=== PATIENT | male | born 1950 | race Caucasian/White ===

== ENCOUNTER 2021-04-27 13:23 | Outpatient (CLI) | payer MEDICARE, MEDICAID | END 2021-04-27 13:24 | disposition home or self-care (01) | LOC: NAV RAD 13:23 | PROVIDERS: ATTEND Internal Medicine | DX: R10.2 Pelvic and perineal pain (principal); M25.551 Pain in right hip; M25.552 Pain in left hip; Z91.81 History of falling | CPT/HCPCS: 72170 ==

== ENCOUNTER 2021-07-18 03:56 | Emergency (ER) | payer MEDICARE, MEDICAID ==
[2021-07-18] MEDS ORDERED: Morphine 4 MG/ML VIAL ONE (04:23)
== END 2021-07-18 04:39 ==
LOC: NAV ERS 03:56
DX: M25.551 Pain in right hip (principal); G89.29 Other chronic pain; E11.51 Type 2 diabetes mellitus with diabetic peripheral angiopathy without gangrene; E11.22 Type 2 diabetes mellitus with diabetic chronic kidney disease; I13.0 Hypertensive heart and chronic kidney disease with heart failure and stage 1 through stage 4 chronic kidney disease, or unspecified chronic kidney disease; N18.30 Chronic kidney disease, stage 3 unspecified; I50.9 Heart failure, unspecified; E66.9 Obesity, unspecified
CPT/HCPCS: 96372; 99283; J2270

== ENCOUNTER 2024-11-20 18:02 | Emergency (ER) | payer MEDICARE, MEDICAID ==
[2024-11-20] MEDS ORDERED: Acetaminophen/Codeine 30-300mg Tablet ONE (18:22)
== END 2024-11-20 19:51 ==
LOC: NAV ERS 18:02
DX: S00.12XA Contusion of left eyelid and periocular area, initial encounter (principal); S50.312A Abrasion of left elbow, initial encounter; I13.0 Hypertensive heart and chronic kidney disease with heart failure and stage 1 through stage 4 chronic kidney disease, or unspecified chronic kidney disease; I50.9 Heart failure, unspecified; N18.30 Chronic kidney disease, stage 3 unspecified; E11.22 Type 2 diabetes mellitus with diabetic chronic kidney disease; E66.9 Obesity, unspecified; K21.9 Gastro-esophageal reflux disease without esophagitis; Z79.899 Other long term (current) drug therapy; Z79.4 Long term (current) use of insulin; Z79.82 Long term (current) use of aspirin; W05.0XXA Fall from non-moving wheelchair, initial encounter
CPT/HCPCS: 70450; 70486